=== PATIENT | female | born 1970 | race African-American/Black ===

== ENCOUNTER → 2019-04-08 | Outpatient (CLI) | payer OTHER, MEDICARE | LOC: COL.LAB 10:14 | DX: R19.7 Diarrhea, unspecified (principal) ==

== ENCOUNTER → 2020-02-06 | Outpatient (CLI) | payer OTHER, MEDICARE | LOC: MC.RAD 09:00 | DX: Z12.31 Encounter for screening mammogram for malignant neoplasm of breast (principal); N63.10 Unspecified lump in the right breast, unspecified quadrant ==

== ENCOUNTER → 2020-02-21 | Outpatient (CLI) | payer OTHER | LOC: MC.RAD 09:17 | DX: N63.10 Unspecified lump in the right breast, unspecified quadrant (principal) ==

== ENCOUNTER → 2020-08-24 | Outpatient (CLI) | payer OTHER | LOC: MC.RAD 10:20 | DX: N64.89 Other specified disorders of breast (principal) ==